=== PATIENT | female | born 1945 | race Caucasian/White ===

== ENCOUNTER 2019-05-24 17:05 | Emergency (ER) | payer OTHER, MEDICARE ==
[~2019-05-24] VITALS: Ht 170.2 cm; Wt 77.1 kg
[~2019-05-24 17:05] MED LIST: CALCIUM 1,0001 EACH PO; DIAZEPAM5 MG PO; FLAX SEED OIL1000 MG PO; GLIPIZIDE XL5 MG PO; GLUCOPHAGE1000 MG PO; LEVOTHYROXINE50 MCG PO; LISINOPRIL20 MG PO; MAGNESIUM500 MG PO; MINERAL OIL30 ML AD; MOTRIN800 MG PO; PERCOCET 5-3251 EACH PO; SENNALAX-S TAB1 EACH PO; SUPER B COMPLE1 EACH PO
--- OUTSIDE RECORDS SUMMARY | 2019-05-24 17:10 | XMS ---
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 Tha has no Care Guidelines for this patient. Maria Alejandra VISIT COUNT (12 MO.) 1 [facility] Nina TOTAL 1 NOTE: Visits indicate total known visits. ED/C VISIT TRACKING (12 MO.) 05/24/2019 17:07 [facility] [place] TYPE: Emergency COMPLAINT: - R KNEE AND FACE INJURY INPATIENT VISIT TRACKING (12 MO.) No inpatient visits to display in this time frame [email or web address]
[2019-05-24] MEDS ORDERED: LOSARTAN POTASS50 MG PO (17:25)
[2019-05-24] MEDS ORDERED: AMLODIPINE BESYL5 MG PO (17:25)
[2019-05-24] MEDS ORDERED: AMLODIPINE BESY10 MG PO (17:25)
[2019-05-24] MEDS ORDERED: FENOFIBRATE134 MG PO (17:26)
== END 2019-05-24 19:06 | disposition home or self-care (01) ==
LOC: ED 17:05
DX: S01.112A Laceration without foreign body of left eyelid and periocular area, initial encounter (principal); S43.402A Unspecified sprain of left shoulder joint, initial encounter; S43.401A Unspecified sprain of right shoulder joint, initial encounter; S80.01XA Contusion of right knee, initial encounter; W01.198A Fall on same level from slipping, tripping and stumbling with subsequent striking against other object, initial encounter; Y99.0 Civilian activity done for income or pay; Z88.8 Allergy status to other drugs, medicaments and biological substances; Z88.2 Allergy status to sulfonamides; Z91.013 Allergy to seafood; Z79.899 Other long term (current) drug therapy; Z79.84 Long term (current) use of oral hypoglycemic drugs; E11.9 Type 2 diabetes mellitus without complications; E78.5 Hyperlipidemia, unspecified; I10 Essential (primary) hypertension
CPT/HCPCS: 73560; 99283

== ENCOUNTER 2020-10-21 11:06 | Emergency (ER) | payer MEDICARE, OTHER ==
[~2020-10-21] VITALS: Ht 170.2 cm; Wt 77.1 kg
[~2020-10-21 11:06] MED LIST changes: +AMLODIPINE BESY10 MG PO; +AMLODIPINE BESYL5 MG PO; +FENOFIBRATE134 MG PO; +LOSARTAN POTASS50 MG PO
--- OUTSIDE RECORDS SUMMARY | 2020-10-21 11:10 | XMS ---
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 EBeatriz VISIT COUNT (12 MO.) 1 BRYON Nina TOTAL 1 NOTE: Visits indicate total known visits. ED/UCC VISIT TRACKING (12 MO.) 10/21/2020 11:07 [facility] TYPE: Emergency COMPLAINT: - HEADACHE, NECK/EAR PAIN INPATIENT VISIT TRACKING (12 MO.) No inpatient visits to display in this time frame [email or web address]
[2020-10-21] MEDS ORDERED: FLONASE ALLERG9.9 ML NAS (12:45)
[2020-10-21] MEDS ORDERED: VENTOLIN HFA18 GM INH (12:45)
== END 2020-10-21 12:52 | disposition home or self-care (01) ==
LOC: ED 11:06
DX: S16.1XXA Strain of muscle, fascia and tendon at neck level, initial encounter (principal); S00.83XA Contusion of other part of head, initial encounter; B34.9 Viral infection, unspecified; J30.2 Other seasonal allergic rhinitis; E11.9 Type 2 diabetes mellitus without complications; I10 Essential (primary) hypertension; E78.5 Hyperlipidemia, unspecified; Z91.013 Allergy to seafood; Z88.2 Allergy status to sulfonamides; Z91.041 Radiographic dye allergy status; Z79.899 Other long term (current) drug therapy; Z79.84 Long term (current) use of oral hypoglycemic drugs; W22.8XXA Striking against or struck by other objects, initial encounter
CPT/HCPCS: 99283

== ENCOUNTER 2020-10-24 13:49 | Emergency (ER) | payer MEDICARE, OTHER ==
[~2020-10-24] VITALS: Ht 170.2 cm; Wt 77.1 kg
[~2020-10-24 13:49] MED LIST changes: +FLONASE ALLERG9.9 ML NAS; +VENTOLIN HFA18 GM INH
--- OUTSIDE RECORDS SUMMARY | 2020-10-24 13:52 | XMS ---
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 EBeatriz VISIT COUNT (12 MO.) 2 [facility] TOTAL 2 NOTE: Visits indicate total known visits. ED/UCC VISIT TRACKING (12 MO.) 10/24/2020 13:49 [facility] OR TYPE: Emergency COMPLAINT: - HEAD INJURY 10/21/2020 11:07 [facility] OR TYPE: Emergency COMPLAINT: - HEADACHE, NECK/EAR PAIN INPATIENT VISIT TRACKING (12 MO.) No inpatient visits to display in this time frame [id number]
[2020-10-24] MEDS ORDERED: ACETAMINOPHEN-1 EAC1 PO (15:15)
== END 2020-10-24 15:44 | disposition home or self-care (01) ==
LOC: ED 13:49
DX: S06.0X9A Concussion with loss of consciousness of unspecified duration, initial encounter (principal); K59.00 Constipation, unspecified; E11.9 Type 2 diabetes mellitus without complications; E78.5 Hyperlipidemia, unspecified; I10 Essential (primary) hypertension; Z91.013 Allergy to seafood; Z88.2 Allergy status to sulfonamides; Z88.8 Allergy status to other drugs, medicaments and biological substances; Z79.899 Other long term (current) drug therapy; Z79.84 Long term (current) use of oral hypoglycemic drugs; W22.8XXA Striking against or struck by other objects, initial encounter
CPT/HCPCS: 70450; 74018; 99284-25